=== PATIENT | female | born 2000 | race Caucasian/White ===

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

== ENCOUNTER 2021-09-13 18:24 | Emergency (ER) | payer OTHER, BC, MEDICAID ==
[~2021-09-13] VITALS: Ht 160 cm; Wt 63.6 kg
[2021-09-13 18:32] VITALS: BP 127/84
--- NOTE | 2021-09-13 18:41 | ED Lower Extremity ---
General Chief Complaint: Lower Extremity Stated Complaint: LEFT FOOT INJURY Source: patient Exam Limitations: no limitations History of Present Illness Date Seen by Provider: Sep 13, 2021 Time Seen by Provider: 18:40 Initial Comments Patient is a 20-year-old female presents ED with left foot pain. She states 30 minutes ago she was working outside. She was working around a skid steer when the skid steer bucket landed directly on her left foot. She was wearing boots but they were not steel toed. Patient had immediate pain with swelling and bruising to the distal dorsum foot. No active bleeding. Pain with walking was able to bear some weight. No history of previous fracture. Ice was applied immediately here in the ED. Denies taking thing for pain. Denies fever, chills, nausea, vomiting, diarrhea, distal numbness and tingling. Allergies and Home Medications Allergies Coded Allergies: No Known Drug Allergies (Unverified , 11/19/17) Patient Home Medication List Home Medication List Reviewed: Yes Naproxen (Naproxen) 500 Mg Tablet.dr, 500 MG PO BID Prescribed by: MAHNAZ HERNADEZ on 09/13/211932 Review of Systems Constitutional: No chills, No diaphoresis EENTM: No blurred vision, No double vision Respiratory: No cough, No dyspnea on exertion Cardiovascular: No chest pain Gastrointestinal: No abdominal pain, No diarrhea, No nausea, No vomiting Genitourinary: No decreased output, No discharge Musculoskeletal: muscle pain, muscle stiffness Skin: change in color All Other Systems Reviewed Negative Unless Noted: Yes Past Lgtyvdi-Kbzchx-Cmstrc Hx Immunizations Up To Date Tetanus Booster (TDap): Less than 5yrs PED Vaccines UTD: Yes Seasonal Allergies Seasonal Allergies: No Past Medical History Surgeries: No Respiratory: No Cardiac: No Neurological: No Genitourinary: No Gastrointestinal: No Musculoskeletal: No Endocrine: No HEENT: No Cancer: No Psychosocial: No Integumentary: No Blood Disorders: No Adverse Reaction/Blood Tranf: No Physical Exam Vital Signs Vital Signs - First Documented 09/13/21 18:32 Temp 36.7 Pulse 96 Resp 20 B/P (MAP) 127/84 (98) Pulse Ox 95 O2 Delivery Room Air Capillary Refill : Height, Weight, BMI Height: 5'2.00" Weight: 133lbs. oz. 60.624507tv; 24.00 BMI Method:Actual General Appearance: WD/WN, no apparent distress HEENT: PERRL/EOMI, normal ENT inspection, TMs normal, pharynx normal Neck: non-tender, full range of motion, supple Cardiovascular: regular rate, rhythm, no edema, no gallop, no JVD Respiratory: chest non-tender, lungs clear, normal breath sounds, no respiratory distress, no accessory muscle use Gastrointestinal: normal bowel sounds, non tender, no pulsatile mass Back: normal inspection, no vertebral tenderness Feet: left foot ecchymosis, left foot limited range of motion, left foot pain, left foot soft tissue tenderness, left foot swelling Neurologic/Psychiatric: cushion assembler II-XII nml as tested, no motor/sensory deficits, alert, normal mood/affect, oriented x 3 Skin: other (Bruising swelling left dorsum foot.) Lymphatic: no adenopathy Progress/Results/Core Measures Results/Orders My Orders Orders - JOON ORTIZ Foot, Left, 3 Views (09/13/21 18:39) Hydrocodone/Apap 5/325 Tablet (Lortab 5 (09/13/21 18:45) Medications Given in ED Current Medications Medications Dose Ordered Sig/Paz Route Start Time Stop Time Status Last Admin Dose Admin Acetaminophen/ Hydrocodone Bitart 1 ea ONCE ONCE PO 09/13/21 18:45 09/13/21 18:46 DC 09/13/21 18:46 1 EA Vital Signs/I&O 09/13/21 09/13/21 18:32 18:46 Temp 36.7 36.7 Pulse 96 Resp 20 B/P (MAP) 127/84 (98) Pulse Ox 95 O2 Delivery Room Air Departure Communication (PCP) X-ray negative for fracture. No evidence of compartment syndrome. Ice was applied per refused pain medication. Discussed all results with patient. Recommend limiting working over the next week. Ice elevate anti-inflammatories. Orthopedic follow-up in 7 to 10 days if pain progress. If any worsening symptoms return back to ED for further evaluation. Refused any pain medication here in the ED Impression Primary Impression: Foot contusion Disposition: 01 HOME, SELF-CARE Condition: Stable Departure-Patient Inst. Decision time for Depature: 19:32 Referrals: YAJAIRA DELUCA MD, CHAD C MD (PCP/Family) Primary Care Physician Patient Instructions: Contusion (DC) Add. Discharge Instructions: Recommend ice, elevate and anti-inflammatories. Recommend rest for the next 3 to 4 days. Orthopedic follow-up in 7 to 10 days if pain progress. Joaquín wrap for support. All discharge instructions reviewed with patient and/or family. Voiced understanding. Scripts Naproxen (Naproxen) 500 Mg Tablet. 500 MG PO BID for 10 Days, #20 TAB Prov: JOON ORTIZ 09/13/21 JOON ORTIZ Sep 13, 2021 18:41
[2021-09-13] MEDS ORDERED: HYDROcodone/APAP 5 MG/325 MG (LORTAB) TAB PO ONE (18:45)
--- NOTE | 2021-09-13 19:05 | Diagnostic Imaging Report ---
INDICATION: Left foot pain. Three views of the left foot show no fracture, dislocation or other acute abnormalities. IMPRESSION: Negative left foot. Dictated by: Dictated on workstation # [id number]
[2021-09-13] MEDS ORDERED: NAPR500T8 PO (19:33)
== END 2021-09-13 19:56 | disposition home or self-care (01) ==
LOC: EDUNIT# 18:24 → ER 18:27
DX: S90.32XA Contusion of left foot, initial encounter (principal); W20.8XXA Other cause of strike by thrown, projected or falling object, initial encounter
CPT/HCPCS: 73630

== ENCOUNTER 2022-09-18 20:20 | Emergency (ER) | payer OTHER, BC, MEDICAID ==
[~2022-09-18] VITALS: Ht 160 cm; Wt 61.2 kg
[~2022-09-18 20:20] MED LIST changes: -IBUPROFEN 600 MG (MOTRIN) TAB PO ONE; +NAPR500T8 PO
[2022-09-18 20:56] VITALS: BP 138/87
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
--- NOTE | 2022-09-18 22:03 | Diagnostic Imaging Report ---
CLINICAL INDICATIONS: Patient with right shoulder pain. EXAM: X-ray of the right shoulder, 3 views. COMPARISON: None. FINDINGS: There is no acute fracture or dislocation. There is no significant bone or joint abnormality. The right AC joint is unremarkable. IMPRESSION: Unremarkable x-ray of the right shoulder. Dictated by: Dictated on workstation # [id number]
--- NOTE | 2022-09-18 22:04 | Diagnostic Imaging Report ---
CLINICAL INDICATIONS: Patient with right humerus and right elbow pain. EXAMS: 1: X-ray right humerus, 2 views. 2: X-ray right elbow, 3 views. COMPARISON: None. FINDINGS: X-rays of the right elbow and right humerus show no acute fracture or dislocation. There is no significant bone or joint abnormality. There is no elbow effusion. IMPRESSION: X-rays of the right elbow right humerus show no acute fracture or dislocation. Dictated by: Dictated on workstation # [id number]
== END 2022-09-18 22:41 | disposition home or self-care (01) ==
LOC: EDUNIT# 20:20 → ER 20:23
DX: S40.011A Contusion of right shoulder, initial encounter (principal); S50.01XA Contusion of right elbow, initial encounter; V40.9XXA Unspecified car occupant injured in collision with pedestrian or animal in traffic accident, initial encounter; Y92.410 Unspecified street and highway as the place of occurrence of the external cause
CPT/HCPCS: 73030; 73060; 73080